=== PATIENT | male | born 1930 | race African-American/Black ===

== ENCOUNTER 2016-11-04 19:24 | Emergency (ER) | payer OTHER ==
[~2016-11-04] VITALS: Ht 172.7 cm; Wt 71.7 kg
[2016-11-04] MEDS ORDERED: HYDROCODONE-AP1 EAC6 PO (21:59)
[2016-11-04] MEDS ORDERED: LIDODERM 5%1 PATC1 TRANSDERM (21:59)
[2016-11-04 23:33] VITALS: BP 132/76
== END 2016-11-04 23:00 | disposition home or self-care (01) ==
LOC: ER 19:24
DX: S20.212A Contusion of left front wall of thorax, initial encounter (principal); F10.99 Alcohol use, unspecified with unspecified alcohol-induced disorder; V89.2XXA Person injured in unspecified motor-vehicle accident, traffic, initial encounter; Y93.89 Activity, other specified; Y92.89 Other specified places as the place of occurrence of the external cause; Y99.8 Other external cause status

== ENCOUNTER → 2016-11-28 | Outpatient (CLI) | payer OTHER ==
[~2016-11-28] MED LIST: HYDROCODONE-AP1 EAC6 PO; LIDODERM 5%1 PATC1 TRANSDERM
== END ==
LOC: RAD 10:50
DX: R07.81 Pleurodynia (principal); V89.2XXA Person injured in unspecified motor-vehicle accident, traffic, initial encounter; Y93.89 Activity, other specified; Y92.89 Other specified places as the place of occurrence of the external cause; Y99.8 Other external cause status

== ENCOUNTER → 2017-01-17 | Outpatient (CLI) | payer OTHER | LOC: RAD 15:11 | DX: M47.896 Other spondylosis, lumbar region (principal); M48.02 Spinal stenosis, cervical region ==